=== PATIENT | female | born 1980 | race Caucasian/White ===

== ENCOUNTER 2017-03-15 09:14 | Outpatient (CLI) | payer OTHER ==
--- NOTE | 2017-03-15 12:43 | ULT ---
PELVIC ULTRASOUND: History: Right adnexal pain x years. History of tubal ligation in 2004. FINDINGS: Real-time imaging of the pelvis was obtained transabdominally as well as with an endovaginal probe. This shows a uterus measuring 5 x 7.1 x 10 cm. The endometrium is thickened measuring approximately 1.5 cm. There are some small Nabothian type cysts noted. The right and left adnexa are well visualized and normal in appearance. DOPPLER EVALUATION WITH SPECTRAL ANALYSIS: Normal flow is shown to both ovaries. IMPRESSION: Thickened endometrium which could be related to stage of menstrual cycle. Small Nabothian cysts are noted. POS: OFF
== END 2017-03-15 09:15 | disposition home or self-care (01) ==
LOC: MADULT 09:14
PROVIDERS: ATTEND Family Medicine
DX: R10.2 Pelvic and perineal pain (principal); N88.8 Other specified noninflammatory disorders of cervix uteri
CPT/HCPCS: 76856

== ENCOUNTER 2024-01-07 03:52 | Emergency (ER) | payer BC ==
[2024-01-07] MEDS ORDERED: diphenhydrAMINE 50 MG/ML VIAL ONE (04:28)
[2024-01-07] MEDS ORDERED: hydrOXYzine 25 MG TAB ONE (04:28)
[2024-01-07] MEDS ORDERED: methylPREDNISolone Sod Succ/PF 125 MG/2 ML VIAL ONE (04:28)
== END 2024-01-07 05:38 | disposition home or self-care (01) ==
LOC: MADERS 03:52
DX: L50.0 Allergic urticaria (principal)
CPT/HCPCS: 96374; 96375; J1200; J2930